=== PATIENT | male | born 1930 | race Caucasian/White ===

== ENCOUNTER 2016-06-01 09:10 | Outpatient (CLI) | payer MEDICARE, OTHER ==
[~2016-06-01 09:10] MED LIST: AMLO2.5T PO; ASPI-495 PO; ATOR40TA PO; BIMA2.5D5 LEFTEYE; DIFL5DRO LEFTEYE; ERGO50003 PO; FISH OIL 1,2001 EAC1 PO; FLEC100T2 PO; RIVA10TA PO; VALA100026 PO
[2016-06-01 09:43] LABS: BASOPHILS % (AUTO) 0.3 % (0.0-2.0); EOSINOPHILS # (AUTO) 0.4 /CMM (0.0-0.7); EOSINOPHILS % (AUTO) 4.2 % (0.0-6.0); HEMATOCRIT 37 % (39-51); HEMOGLOBIN 12.4 g/dL (13.5-17.5); LYMPHOCYTES # (AUTO) 2.3 /CMM (0.8-4.8); LYMPHOCYTES % (AUTO) 25.9 % (20.0-44.0); MEAN CORPUSCULAR HEMOGLOBIN 34 PG (26.0-33.0); MEAN CORPUSCULAR HGB CONC 34 g/dl (31.0-36.0); MEAN CORPUSCULAR VOLUME 102 fL (80-96); MONOCYTES # (AUTO) 0.7 /CMM (0.1-1.30); MONOCYTES % (AUTO) 7.3 % (2.0-12.0); NEUTROPHILS # (AUTO) 5.6 /CMM (1.8-8.9); NEUTROPHILS % (AUTO) 62.3 % (43.0-81.0); PLATELET COUNT (AUTO) 173 /CMM (150-450); RDW COEFFICIENT OF VARIATION 13.6 (11.5-15.0); RED BLOOD CELL COUNT(AUTO) 3.61 MIL/uL (4.5-6.0)
[2016-06-01 09:53] LABS: ALBUMIN 3.6 g/dL (3.4-5.0); BILIRUBIN,TOTAL 0.8 mg/dL (0.2-1.0); CREATININE 1.1 mg/dL (0.6-1.3); MAGNESIUM 2.1 mg/dL (1.8-2.4); POTASSIUM 4.1 mmol/L (3.5-5.1); TOTAL PROTEIN, SERUM 7.3 g/dL (6.4-8.2)
[2016-06-01 10:01] LABS: THYROID STIMULATING HORMONE 1.965 uIU/mL (0.358-3.74)
== END 2016-06-01 23:59 | disposition home or self-care (01) ==
LOC: LAB 09:10
PROVIDERS: ATTEND Internal Medicine Interventional Cardiology
DX: I25.10 Atherosclerotic heart disease of native coronary artery without angina pectoris (principal); I10 Essential (primary) hypertension; R53.83 Other fatigue
CPT/HCPCS: 36415; 80053-TC; 80061-TC; 82306; 83735-TC; 84439-TC; 84443-TC; 85025-TC

== ENCOUNTER 2016-10-15 07:40 | Emergency (ER) | payer MEDICARE, OTHER ==
[~2016-10-15] VITALS: Ht 170.2 cm; Wt 67.6 kg
[2016-10-15 07:52] VITALS: BP 100/75
== END 2016-10-15 08:49 | disposition home or self-care (01) ==
LOC: ER 07:41
DX: B99.9 Unspecified infectious disease (principal); H10.89 Other conjunctivitis; I10 Essential (primary) hypertension; H40.9 Unspecified glaucoma; Z79.01 Long term (current) use of anticoagulants; Z79.82 Long term (current) use of aspirin
CPT/HCPCS: 99283; A4606; Z7610

== ENCOUNTER 2016-10-21 09:43 | Inpatient (IN) | payer MEDICARE, OTHER ==
[~2016-10-21] VITALS: Ht 175.3 cm; Wt 72.6 kg
[~2016-10-21 09:43] MED LIST changes: +BIMA2.5D5 EACHEYE; -BIMA2.5D5 LEFTEYE
--- NOTE | 2016-10-21 09:55 | NUR ---
AAOX3, BIBRA 102 FROM [facility] C/O SYNCOPAL EPISODE. SKIN IS WARM AND DRY. RESP IS EVEN AND UNLABORED WITH NAD NOTED. PLACED ON MONITOR. DR CARTER AT BS FOR EVAL.
[2016-10-21] MEDS ORDERED: IV NS 0.9% 500 ML BAG IV ONE (10:00)
[2016-10-21 10:15] LABS: BASOPHILS # (AUTO) 0.1 /CMM (0.0-0.2); BASOPHILS % (AUTO) 0.8 % (0.0-2.0); EOSINOPHILS # (AUTO) 0.2 /CMM (0.0-0.7); EOSINOPHILS % (AUTO) 3.3 % (0.0-6.0); HEMATOCRIT 37 % (39-51); HEMOGLOBIN 12.5 g/dL (13.5-17.5); LYMPHOCYTES # (AUTO) 2.2 /CMM (0.8-4.8); LYMPHOCYTES % (AUTO) 30.1 % (20.0-44.0); MEAN CORPUSCULAR HEMOGLOBIN 32 PG (26.0-33.0); MEAN CORPUSCULAR HGB CONC 33 g/dl (31.0-36.0); MEAN CORPUSCULAR VOLUME 97 fL (80-96); MONOCYTES # (AUTO) 0.6 /CMM (0.1-1.30); MONOCYTES % (AUTO) 7.7 % (2.0-12.0); NEUTROPHILS # (AUTO) 4.1 /CMM (1.8-8.9); NEUTROPHILS % (AUTO) 58.1 % (43.0-81.0); PLATELET COUNT (AUTO) 172 /CMM (150-450); RDW COEFFICIENT OF VARIATION 12.6 (11.5-15.0); RED BLOOD CELL COUNT(AUTO) 3.87 MIL/uL (4.5-6.0); WHITE BLOOD COUNT (AUTO) 7.2 K/uL (4.3-11.0)
[2016-10-21 10:21] LABS: CARBON DIOXIDE 31 mmol/L (21-32); CHLORIDE 104 mmol/L (98-107); CREATININE 1.4 mg/dL (0.6-1.3); GLUCOSE 107 mg/dL (74-106); POTASSIUM 3.6 mmol/L (3.5-5.1); SODIUM SERUM 141 mmol/L (136-145); UREA NITROGEN, BLOOD 15 mg/dL (7-18)
[2016-10-21 10:31] LABS: TROPONIN I < 0.017 ng/mL (0.00-0.056)
[2016-10-21] MEDS ORDERED: TIMO5DRO4 LEFTEYE (10:34)
[2016-10-21] MEDS ORDERED: BRIN8DRO LEFTEYE (10:34)
--- NOTE | 2016-10-21 10:36 | NUR ---
PANEL ON-CALL PAGED
--- NOTE | 2016-10-21 10:48 | NUR ---
Report given to MEDINA Mcmahon for SOWMYA Tele [phone]
[2016-10-21 11:30] VITALS: BP 120/82
--- NOTE | 2016-10-21 11:30 | NUR ---
GRAINING MACHINE OPERATOR ADMITTING NOTE PATIENT ARRIVED TO THE UNIT FROM ER. WILL ASSESS AND DOCUMENT ALL ASSESSMENT FINDINGS. MD NOTIFIED OF PATEIN'S ARRIVAL TO THE UNIT.
[2016-10-21] MEDS: TIMOLOL 0.5% SOLN OPHTH 5 ML BOTTLE LEFTEYE SCH ×2 (13:45→16:05)
[2016-10-21 14:45] VITALS: BP 138/70
[2016-10-21 14:47] VITALS: BP 138/71
[2016-10-21 14:49] VITALS: BP 140/67
[2016-10-21] MEDS: POTASSIUM CHLORIDE 20 MEQ TAB.PRT.SR PO SCH ×3 (16:01→18:13)
[2016-10-21 16:09] VITALS: BP 126/76
[2016-10-21] MEDS: VALACYCLOVIR HCL 500 MG TABLET PO SCH (16:13)
[2016-10-21] MEDS: IV NS 0.9% 1,000 ML IV PRN (16:17)
--- NOTE | 2016-10-21 19:15 | NUR ---
EQUIPMENT TECH CLOSING NOTE PATIENT IS RESTING IN THE BED COMFORTABLY. BED IS LOCKED, IN LOWEST POSITION, SIDE RAILS UP X 3, BED ALARM ON. ALL NEEDS ATTENDED. DUE MEDS GIVEN. WILL ENDORSE TO THE NEXT SHIFT FOR SOWMYA
--- NOTE | 2016-10-21 19:50 | NUR ---
PROGRAMMING MANAGER NOTE: PATIENT RESTING IN BED, NO ACUTE DISTRESS NOTED. BREATHING EVEN AND UNLABORED, NO SOB NOTED. IV ACCIDENTALLY PULLED OUT WHEN GETTING UP TO GO TO BATHROOM. WILL START A NEW IV AGAIN. INSTRUCTED TO CALL FOR ASSISTANCE BEFORE GETTING UP. BED LOCKED AND IN LOWEST POSITION, CALL LIGHT IN REACH. WILL CONTINUE TO MONITOR.
[2016-10-21 20:00] VITALS: BP 142/60
[2016-10-21] MEDS: FLECAINIDE ACETATE (100 MG) 100 MG TABLET PO SCH (21:22)
[2016-10-21] MEDS ORDERED: LATANOPROST EYE DROP 0.005% 2.5 ML BOTTLE OP SCH (22:00)
[2016-10-22] VITALS (7 sets, daily range): BP systolic 119–143; BP diastolic 70–76
--- NOTE | 2016-10-22 01:00 | NUR ---
BACCARAT MANAGER NOTE: PATIENT IV STARTED TO LEFT FOREARM #22 WITH GOOD BLOOD RETURN. IV FLUIDS CONNECTED. INSTRUCTED PATIENT TO REMEMBER TO CALL FOR ASSISTANCE BEFORE GETTING OUT OF BED, TO AVOID ACCIDENTALLY PULLING OUT IV AGAIN. WILL CONTINUE TO MONITOR.
--- NOTE | 2016-10-22 06:25 | NUR ---
ACADEMIC ASSISTANT NOTE: PATIENT RESTING IN BED, NO ACUTE DISTRESS NOTED. BREATHING EVEN AND UNLABORED, NO SOB NOTED. IV TO LFA IN PLACE, INFUSING NS AT 125ML/HR. BED LOCKED AND IN LOWEST POSITION, CALL LIGHT IN REACH. WILL ENDORSE TO DAY NURSE TO CONTINUE WITH PLAN OF CARE.
[2016-10-22 06:31] LABS: BASOPHILS % (AUTO) 0.4 % (0.0-2.0); EOSINOPHILS # (AUTO) 0.3 /CMM (0.0-0.7); HEMATOCRIT 38 % (39-51); HEMOGLOBIN 12.6 g/dL (13.5-17.5); LYMPHOCYTES # (AUTO) 2.4 /CMM (0.8-4.8); LYMPHOCYTES % (AUTO) 29.1 % (20.0-44.0); MEAN CORPUSCULAR HEMOGLOBIN 34 PG (26.0-33.0); MEAN CORPUSCULAR HGB CONC 34 g/dl (31.0-36.0); MEAN CORPUSCULAR VOLUME 100 fL (80-96); MONOCYTES # (AUTO) 0.7 /CMM (0.1-1.30); MONOCYTES % (AUTO) 8.5 % (2.0-12.0); NEUTROPHILS # (AUTO) 4.7 /CMM (1.8-8.9); PLATELET COUNT (AUTO) 161 /CMM (150-450); RDW COEFFICIENT OF VARIATION 13.6 (11.5-15.0); RED BLOOD CELL COUNT(AUTO) 3.76 MIL/uL (4.5-6.0); WHITE BLOOD COUNT (AUTO) 8.1 K/uL (4.3-11.0)
[2016-10-22 06:59] LABS: TROPONIN I < 0.017 ng/mL (0.00-0.056)
[2016-10-22 07:07] LABS: ALANINE AMINOTRANSFERASE 17 U/L (12-78); ALBUMIN 3.2 g/dL (3.4-5.0); ALKALINE PHOSPHATASE 55 U/L (46-116); ASPARTATE AMINOTRANSFERASE 18 U/L (15-37); BILIRUBIN,TOTAL 1.1 mg/dL (0.2-1.0); CALCIUM, SERUM 8.8 mg/dL (8.5-10.1); CHLORIDE 108 mmol/L (98-107); CREATININE 1.2 mg/dL (0.6-1.3); GLUCOSE 93 mg/dL (74-106); MAGNESIUM 1.8 mg/dL (1.8-2.4); POTASSIUM 4.1 mmol/L (3.5-5.1); SODIUM SERUM 143 mmol/L (136-145); TOTAL PROTEIN, SERUM 6.4 g/dL (6.4-8.2); UREA NITROGEN, BLOOD 15 mg/dL (7-18)
--- NOTE | 2016-10-22 07:10 | NUR ---
RN NOTES PT IS IN BED, SLEEPING COMFORTABLY. PT SHOWS NO SIGNS OF DISTRESS, ON RA, NO SOB NOTED. IV ON LFA INTACT, RUNNING NS AT 125 ML/HR. SAFETY MEASURES ARE IN PLACE, CALL LIGHT IS IN REACH. WILL CONTINUE TO MONITOR.
[2016-10-22 07:12] LABS: CARBON DIOXIDE 28 mmol/L (21-32)
[2016-10-22] MEDS: IV NS 0.9% 1,000 ML IV PRN (07:36)
[2016-10-22] MEDS: TIMOLOL 0.5% SOLN OPHTH 5 ML BOTTLE LEFTEYE SCH ×2 (08:23→12:33)
[2016-10-22] MEDS: VALACYCLOVIR HCL 500 MG TABLET PO SCH (08:24)
[2016-10-22] MEDS: FLECAINIDE ACETATE (100 MG) 100 MG TABLET PO SCH (08:24)
[2016-10-22] MEDS ORDERED: RIVAROXABAN 10 MG TABLET PO SCH (09:00)
[2016-10-22] MEDS ORDERED: AMLODIPINE BESYLATE 2.5 MG TABLET PO SCH (09:00)
[2016-10-22] MEDS ORDERED: BRINZOLAMIDE 1 % OPHTH SOLN 10 ML BOTTLE LEFTEYE SCH (13:00)
[2016-10-22] MEDS ORDERED: BRIMONIDINE TARTRATE OPHT SOLN 5 ML BOTTLE LEFTEYE SCH (13:00)
[2016-10-22] MEDS ORDERED: DORZOLAMIDE OPTH 2% 10 ML BOTTLE LEFTEYE SCH (13:00)
--- NOTE | 2016-10-22 14:45 | NUR ---
PT WAS DISCHARGED IN STABLE CONDITION, ACCOMPANIED BY HIS CAREGIVER BOBBI. IV AND ID BAND WERE REMOVED. PT WAS GIVEN DISCHARGE EDUCATION AND INSTRUCTIONS. PT STATED HE WOULD MAKE APPOINTMENTS ON HIS OWN TO FOLLOW UP WITH PCP AND DR. BACH. PT SIGNED BELONGINGS LIST AND DISCHARGE PAPER.
== END 2016-10-22 14:45 | disposition home or self-care (01) | DRG 683 ==
LOC: ER 09:45 → MERGE 09:45 → TELE 11:04 → MED 10-22 11:26
PROVIDERS: ADMIT Internal Medicine; ATTEND Internal Medicine
DX: N17.0 Acute kidney failure with tubular necrosis (principal); D68.59 Other primary thrombophilia; I48.0 Paroxysmal atrial fibrillation; E66.01 Morbid (severe) obesity due to excess calories; H90.5 Unspecified sensorineural hearing loss; I10 Essential (primary) hypertension; R55 Syncope and collapse; E86.0 Dehydration; I25.10 Atherosclerotic heart disease of native coronary artery without angina pectoris; E78.5 Hyperlipidemia, unspecified; R79.89 Other specified abnormal findings of blood chemistry; H40.9 Unspecified glaucoma
CPT/HCPCS: 36415; 71010-TC; 80048-TC; 80053-TC; 83735-TC; 84100-TC; 84484-TC; 85025-TC; 86850-TC; 87081-TC; 93307-TC; A4606; J7030; J7040; Z7610

== ENCOUNTER 2016-12-29 18:35 | Inpatient (IN) | payer MEDICARE, OTHER ==
[~2016-12-29] VITALS: Ht 175.3 cm; Wt 73.0 kg
[~2016-12-29 18:35] MED LIST changes: -ASPI-495 PO; -ATOR40TA PO; +BRIN8DRO LEFTEYE; -DIFL5DRO LEFTEYE; -ERGO50003 PO; -FISH OIL 1,2001 EAC1 PO; +TIMO5DRO4 LEFTEYE
--- NOTE | 2016-12-29 18:35 | NUR ---
PT BIB RA WITH A C/O NAUSEA. PT DENIES NAUSEA NOW. DR. TOMLINSON IS AT THE BEDSIDE SPEAKING TO THE PT.
[2016-12-29 19:09] LABS: BASOPHILS # (AUTO) 0.2 /CMM (0.0-0.2); BASOPHILS % (AUTO) 2.1 % (0.0-2.0); EOSINOPHILS # (AUTO) 0.2 /CMM (0.0-0.7); EOSINOPHILS % (AUTO) 2.2 % (0.0-6.0); HEMATOCRIT 39 % (39-51); LYMPHOCYTES # (AUTO) 1.6 /CMM (0.8-4.8); LYMPHOCYTES % (AUTO) 18.3 % (20.0-44.0); MEAN CORPUSCULAR HEMOGLOBIN 33 PG (26.0-33.0); MEAN CORPUSCULAR HGB CONC 34 g/dl (31.0-36.0); MEAN CORPUSCULAR VOLUME 97 fL (80-96); MONOCYTES # (AUTO) 0.4 /CMM (0.1-1.30); NEUTROPHILS # (AUTO) 6.3 /CMM (1.8-8.9); NEUTROPHILS % (AUTO) 72.4 % (43.0-81.0); PLATELET COUNT (AUTO) 177 /CMM (150-450); RDW COEFFICIENT OF VARIATION 12.7 (11.5-15.0); RED BLOOD CELL COUNT(AUTO) 3.98 MIL/uL (4.5-6.0); WHITE BLOOD COUNT (AUTO) 8.7 K/uL (4.3-11.0)
[2016-12-29 19:22] LABS: CALCIUM, SERUM 9.6 mg/dL (8.5-10.1); CARBON DIOXIDE 33 mmol/L (21-32); CHLORIDE 104 mmol/L (98-107); CREATININE 1.2 mg/dL (0.6-1.3); GLUCOSE 129 mg/dL (74-106); POTASSIUM 4.2 mmol/L (3.5-5.1); SODIUM SERUM 140 mmol/L (136-145); UREA NITROGEN, BLOOD 28 mg/dL (7-18)
--- NOTE | 2016-12-29 19:26 | NUR ---
PT RETURNED FROM CT.
--- NOTE | 2016-12-29 19:26 | NUR ---
REPORT GIVEN TO MEDINA KING
[2016-12-29 19:31] LABS: TROPONIN I < 0.017 ng/mL (0.00-0.056)
--- NOTE | 2016-12-29 19:53 | NUR ---
BED 304-2
[2016-12-29 20:00] VITALS: BP 161/71
--- NOTE | 2016-12-29 20:04 | NUR ---
epic called for admission- Jay
--- NOTE | 2016-12-29 20:11 | NUR ---
notes given to Chente HANEY, continue plan of care.
--- NOTE | 2016-12-29 20:18 | NUR ---
ADMISSION NOTES RECEIVED PATIENT FROM ER IN ACCOMPANIED BY A NURSE, A & O X 2 WITH FORGETFULNESS DUE TO HX OF DEMENTIA. NO C/O PAIN, NO N/V, NO SOB, NO ACUTE DISTRESS/DISCOMFORT NOTED. IV ACCESS TO L WRIST, HL, INTACT PATENT. HAS GENERALIZED BODY WEAKNESS, BUT ABLE TO WALK TOLERATED. CONTINENT OF BM BUT EPISODE OF URINARY INCONTINENCE NOTED. ALL BELONGINGS ACCOUNTED BY WELFARE ELIGIBILITY INTERVIEWER & DOCUMENTED. BODY ASSESSMENT DONE & DOCUMENTED. ADMITTING ORDERS RECEIVED FROM QUINTON WHITFIELD. NOTED & CARRIED OUT. PT IS UNABLE TO GIVE COMPLETE HISTORY, FORGETFUL. SAFETY PRECAUTIONS IN PLACE. BED IN LOW LOCKED POSITION. CALL LIGHT WITHIN REACH. WILL CONTINUE TO OBSERVE.
[2016-12-29 20:25] VITALS: BP 139/72
[2016-12-29] MEDS ORDERED: ENOXAPARIN SODIUM 40 MG/0.4 ML DISP.SYRIN SQ SCH (21:30)
[2016-12-29] MEDS ORDERED: ONDANSETRON HCL/PF 4 MG/2 ML VIAL IVP PRN (21:30)
[2016-12-29] MEDS ORDERED: ACETAMINOPHEN 325 MG TABLET PO PRN (21:30)
[2016-12-29] MEDS ORDERED: Z GUARD REMEDY 2 OZ OINT TP PRN (21:30)
[2016-12-29] MEDS ORDERED: ZOLPIDEM TARTRATE 5 MG TABLET PO PRN (21:30)
[2016-12-29] MEDS ORDERED: ENOXAPARIN SODIUM 40 MG/0.4 ML DISP.SYRIN SQ ONE (22:19)
[2016-12-29] MEDS ORDERED: ONDANSETRON HCL/PF 4 MG/2 ML VIAL ONE (22:22)
--- NOTE | 2016-12-29 22:26 | NUR ---
PRN ZOFRAN GIVEN PATIENT HAD C/O NAUSEA & HAD 2 EPISODES OF VOMITING. PRN ZOFRAN GIVEN ORDERED. WILL REASSESS FOR EFFECTIVENESS.
--- NOTE | 2016-12-29 23:45 | NUR ---
MS RN NOTES PATIENT NOTED TO BE ASLEEP COMFORTABLY. NO MORE N/V NOTED. CONTINUING TO MONITOR CLOSELY.
--- NOTE | 2016-12-30 03:36 | NUR ---
MS RN NOTES PATIENT SLEEPING COMFORTABLY. NO N/V NOTED. MONITORING CLOSELY.
[2016-12-30 04:00] VITALS: BP 138/73
--- NOTE | 2016-12-30 06:45 | NUR ---
MS RN CLOSING NOTES PATIENT SLEPT WELL AT NIGHT. NO MORE N/V, NO C/O PAIN, NO DISCOMFORT NOTED. IV ACCESS TO LEFT WRIST, HL, INTACT PATENT. STANDBY ASSISTANCE NEEDED DUE TO WEAKNESS WITH ADL'S. CONTINENT OF BM BUT HAD EPISODE X 1 OF URINARY INCONTINENCE AT NIGHT. ABLE TO TAKE PO INTAKE TOLERATED. ALL NEEDS MET. BED IN LOW LOCKED POSITION. CALL LIGHT WITHIN REACH. WILL ENDORSE TO AM RN FOR CONTINUITY OF CARE.
[2016-12-30 06:46] LABS: BASOPHILS % (AUTO) 0.3 % (0.0-2.0); EOSINOPHILS # (AUTO) 0.1 /CMM (0.0-0.7); EOSINOPHILS % (AUTO) 0.7 % (0.0-6.0); HEMATOCRIT 37 % (39-51); HEMOGLOBIN 12.8 g/dL (13.5-17.5); LYMPHOCYTES # (AUTO) 2.3 /CMM (0.8-4.8); LYMPHOCYTES % (AUTO) 26.2 % (20.0-44.0); MEAN CORPUSCULAR HEMOGLOBIN 37 PG (26.0-33.0); MEAN CORPUSCULAR HGB CONC 35 g/dl (31.0-36.0); MEAN CORPUSCULAR VOLUME 106 fL (80-96); MONOCYTES # (AUTO) 0.6 /CMM (0.1-1.30); MONOCYTES % (AUTO) 6.5 % (2.0-12.0); NEUTROPHILS # (AUTO) 5.8 /CMM (1.8-8.9); NEUTROPHILS % (AUTO) 66.3 % (43.0-81.0); PLATELET COUNT (AUTO) 165 /CMM (150-450); RDW COEFFICIENT OF VARIATION 13.5 (11.5-15.0); RED BLOOD CELL COUNT(AUTO) 3.48 MIL/uL (4.5-6.0); WHITE BLOOD COUNT (AUTO) 8.7 K/uL (4.3-11.0)
[2016-12-30 06:59] LABS: ALANINE AMINOTRANSFERASE 21 U/L (12-78); ALBUMIN 3.4 g/dL (3.4-5.0); ALKALINE PHOSPHATASE 55 U/L (46-116); ASPARTATE AMINOTRANSFERASE 27 U/L (15-37); BILIRUBIN,TOTAL 0.7 mg/dL (0.2-1.0); CALCIUM, SERUM 9.4 mg/dL (8.5-10.1); CARBON DIOXIDE 35 mmol/L (21-32); CHLORIDE 104 mmol/L (98-107); CREATININE 1.1 mg/dL (0.6-1.3); GLUCOSE 98 mg/dL (74-106); MAGNESIUM 1.9 mg/dL (1.8-2.4); PHOSPHORUS 3.1 mg/dL (2.5-4.9); POTASSIUM 3.9 mmol/L (3.5-5.1); SODIUM SERUM 138 mmol/L (136-145); TOTAL PROTEIN, SERUM 6.6 g/dL (6.4-8.2); UREA NITROGEN, BLOOD 24 mg/dL (7-18)
[2016-12-30 07:03] LABS: CHOLESTEROL 186 mg/dL (<200); HDL CHOLESTEROL 44 mg/dL (40-60); LDL 127 mg/dL (0-99); THYROID STIMULATING HORMONE 0.973 uIU/mL (0.358-3.74); TRIGLYCERIDES 58 mg/dL (30-150)
--- NOTE | 2016-12-30 07:41 | NUR ---
RN OPENING NOTES RECIEVED PATIENT RESTING COMFORTABLY IN BED WITH EYES CLOSED. PATIENT EASILY AROUSABLE. AOX2. DENIES ANY PAIN AT THIS TIME. DENIES CP AND SOB. IV ACCESS ON THE LEFT WRIST 20G, PATENT AND INTACT. RESPIRATIONS EVEN AND UNLABORED. NO ACUTE DISTRESS NOTED. BED LOCKED IN THE LOWEST POSITION WITH SIDERAILS UP X2. CALL LIGHT WITHIN REACH. WILL CONTINUE TO MONITOR, ASSESS AND EDUCATE PATIENT THROUGHOUT SHIFT.
[2016-12-30 08:00] VITALS: BP 140/71
[2016-12-30] MEDS ORDERED: FLECAINIDE ACETATE (100 MG) 100 MG TABLET PO SCH (09:00)
[2016-12-30] MEDS: TIMOLOL 0.5% SOLN OPHTH 5 ML BOTTLE LEFTEYE SCH ×3 (09:00→18:07)
--- NOTE | 2016-12-30 09:00 | NUR ---
RN NON ADMIN NOTES MORNING DOSE OF TIMOLOL HELD. PATIENT RECEIVED DOSE BY OPERATIONS PLANNER.
[2016-12-30 09:09] LABS: EOSINOPHILS % (MANUAL) 1 % (0-4); LYMPHOCYTES % (MANUAL) 29 % (16-48); MONOCYTES % (MANUAL) 7 % (0-11.0); NEUTROPHILS % (MANUAL) 63 (42-76)
[2016-12-30] MEDS: AMLODIPINE BESYLATE 2.5 MG TABLET PO SCH (10:28)
[2016-12-30] MEDS: IV NS 0.9% 1,000 ML IV PRN ×2 (10:28→23:57)
--- NOTE | 2016-12-30 10:41 | NUR ---
WOUND CARE CONSULT: PT PRESENTS WITH STAGE 2 ULCER TO LEFT BUTTOCK, PRESENT ON ADMISSION. PT IS AMBULATORY AND CURRENT JALIL SCORE IS 20. ALL SKIN PROTECTION AND WOUND RECOMMENDATIONS DISCUSSED WITH NURSING STAFF. WILL SEE PRN. ISOFLEX LOW AIRLOSS BED TO BE PLACED WHEN AVAILABLE. MD IN AGREEMENT WITH PLAN OF CARE. Addendum: 12/30/16 at 1043 by JULIANNE TOLEDO WNDNU Amended: Links added.
[2016-12-30] MEDS ORDERED: HYDROGEL DRESSING 90 GM TUBE TP PRN (11:00)
[2016-12-30 12:00] VITALS: BP 106/68
[2016-12-30] MEDS: HYDROGEL DRESSING 90 GM TUBE TP SCH (12:33)
[2016-12-30] MEDS: MEMANTINE HCL 5 MG TABLET PO SCH (12:33)
--- NOTE | 2016-12-30 13:31 | NUR ---
RN NON ADMIN NOTES VALTREX NOT GIVEN. NOT VERIFIED WITH PHARMACY. WILL F/U WITH CAREGIVER.
[2016-12-30] MEDS: VALACYCLOVIR HCL 500 MG TABLET PO SCH ×2 (15:03→21:00)
[2016-12-30 16:00] VITALS: BP 119/70
[2016-12-30] MEDS ORDERED: RIVAROXABAN 15 MG TABLET PO SCH (17:00)
[2016-12-30] MEDS ORDERED: BIMATOPROST 2.5 ML DROPS OP SCH (18:00)
--- NOTE | 2016-12-30 19:40 | NUR ---
RN INITIAL NOTES: RECEIVED REPORT FROM DAY RN, PT IN BED, AWAKE, A/O X2 ( TO SELF, PLACE AND ), ON RA, RESPIRATION EVEN AND UNLABORED, DENIES ANY PAIN OR DISCOMFORT AT THIS TIME, NO FACIAL GRIMACE NOTED, ON TELE MONITORING CURRENTLY ON SINUS RAMÓN WITH 1 EPISODE OF PVC HR 49, PER DRIP PUMPER LOWEST HR IS 45. MD AWARE. PT HAS LEFT WRIST IV ACCESS PATENT AND FLUSHING WELL, INFUSING WITH NS AT 100ML/HR, ACCESS FREE FROM REDNESS. BLE KEPT OFFLOADED, INSTRUCTED PT HOW TO USE CALL LIGHT AND TO CALL FOR HELP LAKISHA WHEN GOING TO THE BATHROOM. FOUND PT'S OWN HOME MEDICATION AT BED SIDE, WILL SEND TO PHARMACY. SAFETY PRECAUTION FOR FALL INITIATED CALL LIGHT IN REACH, WILL CONTINUE TO MONITOR.
--- NOTE | 2016-12-30 19:49 | NUR ---
RN CLOSING NOTES PATIENT RESTING COMFORTABLY IN BED. AOX1/2 FORGETFUL AND CONFUSED. DENIES ANY PAIN. DENIES SOB AND CP. NS RUNNING AT 75MLS/HR. ALL NEEDS MET. ALL MEDS GIVEN APPROPRIATE. BED LOCKED IN THE LOWEST POSITION WITH SIDE RAILS UP X2. WILL ENDORSE TO NIGHT RN FOR SOWMYA.
[2016-12-30 20:00] VITALS: BP 107/66
[2016-12-30 20:08] VITALS: BP 107/66
--- NOTE | 2016-12-30 21:00 | NUR ---
RN NOTES: PT HAS LEFT CHEST WALL IMPLANTABLE LOOP RECORDER
[2016-12-30] MEDS ORDERED: LATANOPROST EYE DROP 0.005% 2.5 ML BOTTLE EACHEYE SCH (22:00)
--- NOTE | 2016-12-30 22:06 | NUR ---
NON ADMINISTRATION OF VALTREX: PT RECEIVED VALTREX AT 1503, ORDER IS TO GIVE VALTREX 1000MG TAB PO Q12HR, ITS ONLY BEEN 7HRS SINCE PT LAST TAKEN THE DOSE, RELAYED TO BLOOD BANK TECHNICIAN AND PER RECOMMENDATION NOT TO GIVE BECAUSE ITS ONLY 7HRS, NEXT DOSE WILL BE IN AM.
--- NOTE | 2016-12-30 22:10 | NUR ---
RN NOTES: PER ASSOCIATE PRODUCER PT HR LOWEST IS 40, WENT TO CHECK THE PT, PT ASLEEP, AROUSES TO TACTILE STIMULI, DENIES ANY HEAD ACHE,DIZZINESS OR LIGHT HEADEDNESS, MD AWARE PT ON SINUS BRADYCARDIA, WILL CONTINUE MONITORING THE PT
[2016-12-31] VITALS: BP 125/65
[2016-12-31 00:29] VITALS: BP 125/65
[2016-12-31] MEDS ORDERED: ERGO400T7 PO (01:50)
[2016-12-31] MEDS ORDERED: DONE10TA44 PO (01:50)
--- NOTE | 2016-12-31 03:00 | NUR ---
RN NOTES: PER BULL RIVETER LOWEST HEART RATE RECORDED WAS 35, PT ASLEEP, I PERSONALLY WOKE UP THE PT, AND CERTAIN QUESTION, PT IS AROUSABLE, A/O X2, DENIES ANY HEAD ACHE DIZZINESS OR LIGHT HEADEDNESS, PT NOTED TO BE ASYMPTOMATIC, INFORMED EPIC ACCOUNT DEVELOPMENT ASSOCIATE, PER MD TO CONTINUE MONITORING THE PT
[2016-12-31 04:28] VITALS: BP 138/73
[2016-12-31 06:26] LABS: BASOPHILS % (AUTO) 0.4 % (0.0-2.0); EOSINOPHILS # (AUTO) 0.3 /CMM (0.0-0.7); EOSINOPHILS % (AUTO) 3.8 % (0.0-6.0); HEMATOCRIT 36 % (39-51); HEMOGLOBIN 12.2 g/dL (13.5-17.5); LYMPHOCYTES # (AUTO) 2.5 /CMM (0.8-4.8); LYMPHOCYTES % (AUTO) 34.4 % (20.0-44.0); MEAN CORPUSCULAR HEMOGLOBIN 34 PG (26.0-33.0); MEAN CORPUSCULAR HGB CONC 34 g/dl (31.0-36.0); MEAN CORPUSCULAR VOLUME 101 fL (80-96); MONOCYTES # (AUTO) 0.6 /CMM (0.1-1.30); MONOCYTES % (AUTO) 8.3 % (2.0-12.0); NEUTROPHILS # (AUTO) 3.9 /CMM (1.8-8.9); NEUTROPHILS % (AUTO) 53.1 % (43.0-81.0); PLATELET COUNT (AUTO) 151 /CMM (150-450); RDW COEFFICIENT OF VARIATION 13.6 (11.5-15.0); RED BLOOD CELL COUNT(AUTO) 3.56 MIL/uL (4.5-6.0); WHITE BLOOD COUNT (AUTO) 7.4 K/uL (4.3-11.0)
[2016-12-31 06:42] LABS: TROPONIN I < 0.017 ng/mL (0.00-0.056)
--- NOTE | 2016-12-31 06:42 | NUR ---
RN CLOSING NOTES: PT IN BED AWAKE, REMAINS A/O X2 ON RA RESPIRATION EVEN AND UNLABORED, DENIES ANY PAIN OR DISCOMFORT AT THIS TIME, PT REMAINS ON SINUS RHYTHM WITH BORDERLINE 1ST DEGREE AND BBB HR 74, LOWEST HR THROUGHOUT THE NIGHT IS 35, MD AWARE, PT ASYMPTOMATIC, IV ACCESS REMAINS PATENT AND FLUSHING WELL, INFUSING WITH NS AT 100ML/HR, VS REMAINS STABLE, NEEDS ATTENDED, SAFETY PRECAUTIONS FOR FALL REMAINS ENGAGED, CALL LIGHT IN REACH, WILL ENDORSE TO DAY RN FOR SOWMYA.
[2016-12-31 06:47] LABS: ALANINE AMINOTRANSFERASE 22 U/L (12-78); ALBUMIN 3.1 g/dL (3.4-5.0); ALKALINE PHOSPHATASE 50 U/L (46-116); ASPARTATE AMINOTRANSFERASE 23 U/L (15-37); BILIRUBIN,TOTAL 0.6 mg/dL (0.2-1.0); CARBON DIOXIDE 34 mmol/L (21-32); CHLORIDE 106 mmol/L (98-107); CREATININE 1.2 mg/dL (0.6-1.3); GLUCOSE 89 mg/dL (74-106); POTASSIUM 4.3 mmol/L (3.5-5.1); SODIUM SERUM 137 mmol/L (136-145); TOTAL PROTEIN, SERUM 6.2 g/dL (6.4-8.2); UREA NITROGEN, BLOOD 17 mg/dL (7-18)
[2016-12-31 06:53] VITALS: BP 136/68
[2016-12-31 08:00] VITALS: BP 136/68
--- NOTE | 2016-12-31 08:02 | NUR ---
RN OPENING NOTES RECEIVED PT RESTING IN BED, ASLEEP BUT CAN BE EASILY AWOKEN. PATIENT WITH NO COMPLAINT OF PAIN, NO SOB, BREATHING EVEN AND UNLABORED. PATIENT IS ALERT AND ORIENTED X 2, ABLE TO VERBALIZE NEEDS. NOTED PT WITH PERIPHERAL IV LINE ON LEFT WRIST, G20, PATENT, INFUSING WELL WITH NS @100ML. ALL PATIENT'S NEEDS ATTENDED TO, PLACED CALL LIGHT WITHIN REACH. WILL CONTINUE TO MONITOR.
[2016-12-31] MEDS: MEMANTINE HCL 5 MG TABLET PO SCH (09:08)
[2016-12-31] MEDS: TIMOLOL 0.5% SOLN OPHTH 5 ML BOTTLE LEFTEYE SCH ×2 (09:08→13:25)
[2016-12-31 09:09] VITALS: BP 136/68
[2016-12-31] MEDS: VALACYCLOVIR HCL 500 MG TABLET PO SCH (09:09)
[2016-12-31] MEDS: AMLODIPINE BESYLATE 2.5 MG TABLET PO SCH (09:09)
[2016-12-31] MEDS: HYDROGEL DRESSING 90 GM TUBE TP SCH (09:10)
[2016-12-31] MEDS ORDERED: CYANOCOBALAMIN 1,000 MCG/ML VIAL IM SCH (09:30)
[2016-12-31] MEDS ORDERED: MEMA5TAB PO (13:00)
[2016-12-31] MEDS ORDERED: CYAN10006 IM (13:00)
--- NOTE | 2016-12-31 14:00 | NUR ---
RN MS NOTES PT IN BED, AWAKE, ALERT AND ORIENTED, NO COMPLAINT OF PAIN OR ANY DISCOMFORT, ABLE TO WALK ALONG THE HALLWAY WITH CAREGIVER WITH STEADY GAIT, DISCHARGE ORDER RECEIVED FROM SEBASTIEN INFUSION NURSE, PT AND PT'S DAUGHTER INFORMED, DISCHARGE AND MEDICATION INSTRUCTIONS PROVIDED TO PT AND CAREGIVER [place], VERBALIZED UNDERSTANDING, CAREGIVER SERVICES AT HOME CONFIRMED WITH CAREGIVER AGENCY, PRESCRIPTION GIVEN TO PT, BELONGINGS ACCOUNTED FOR, PT DISCHARGED HOME ACCOMPANIED BY CAREGIVER, LEFT IN STABLE CONDITION.
== END 2016-12-31 14:00 | disposition home or self-care (01) | DRG 640 ==
LOC: ER 18:36 → MED 20:31 → TELE 12-30 08:50 → MED 12-31 10:52
PROVIDERS: ADMIT Nurse Practitioner Acute Care; ATTEND Nurse Practitioner Acute Care
DX: E86.0 Dehydration (principal); G93.40 Encephalopathy, unspecified; E46 Unspecified protein-calorie malnutrition; I48.91 Unspecified atrial fibrillation; F03.90 Unspecified dementia, unspecified severity, without behavioral disturbance, psychotic disturbance, mood disturbance, and anxiety; D53.9 Nutritional anemia, unspecified; H40.9 Unspecified glaucoma; I10 Essential (primary) hypertension; R53.1 Weakness; I25.10 Atherosclerotic heart disease of native coronary artery without angina pectoris; R41.82 Altered mental status, unspecified; Z68.23 Body mass index [BMI] 23.0-23.9, adult; R00.1 Bradycardia, unspecified; K21.9 Gastro-esophageal reflux disease without esophagitis; Z79.01 Long term (current) use of anticoagulants
CPT/HCPCS: 36415; 70450-TC; 71010-TC; 80048-TC; 80053-TC; 80061-TC; 83735-TC; 84100-TC; 84443-TC; 84484-TC; 85025-TC; 87081-TC; A4606; A6248; J1650; J2405; J3420; J7030; Z7610